=== PATIENT | female | born 1980 | race African-American/Black ===

== ENCOUNTER 2017-02-10 15:53 | Emergency (ER) | payer OTHER, BC ==
--- NOTE | 2017-02-10 15:56 | PDOC ---
Attending Attestation - Resident Resident Name: Agatha Salazar - ED Attending Attestation I have performed the following: I have examined & evaluated the patient, The case was reviewed & discussed with the resident, I agree w/resident's findings & plan, Exceptions are as noted
[2017-02-10] MEDS ORDERED: NAPROXEN 500 MG TABLET (FP) PO ONE (16:08)
[2017-02-10] MEDS ORDERED: NAPROXEN 500 MG TABLET (FP) ONE (16:10)
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
[2017-02-10 16:29] VITALS: BP 147/98; PULSE 101; TEMP 99.1; BMI 34.5
== END 2017-02-10 16:33 | disposition home or self-care (01) ==
LOC: FER 15:53
DX: S39.012A Strain of muscle, fascia and tendon of lower back, initial encounter (principal); V43.52XA Car driver injured in collision with other type car in traffic accident, initial encounter; Y93.89 Activity, other specified; Y92.9 Unspecified place or not applicable; Z79.84 Long term (current) use of oral hypoglycemic drugs; E11.9 Type 2 diabetes mellitus without complications; I10 Essential (primary) hypertension
CPT/HCPCS: 99281-25

== ENCOUNTER 2017-06-20 00:12 | Emergency (ER) | payer BC, OTHER ==
[2017-06-20] MEDS ORDERED: ACETAMINOPHEN 500 MG TABLET (FP) PO ONE (00:26)
--- NOTE | 2017-06-20 00:26 | PDOC ---
History of Present Illness - General Chief Complaint: Blood Pressure Problem Stated Complaint: BLOOD PRESSURE IS HIGH Time Seen by Provider: 06/20/17 00:23 History Source: Patient Exam Limitations: No Limitations - History of Present Illness Initial Comments: 06/20/17 00:27 This is a 36-year-old female who comes in complaining of hypertension. Patient said she had stopped taking her blood pressure medicine a couple weeks ago and the last several days has had a headache so she took her blood pressure and it was elevated. Patient restarted taking her blood pressure medication 2 days ago and her blood pressure here in the emergency room was 118/87. Patient said that she still has a very mild headache but it is much better. Patient otherwise denies any chest pain shortness patient's nausea, diaphoresis. Or any other complaints. PAST MEDICAL HISTORY: Hypertension PAST SURGICAL HISTORY: no significant history FAMILY HISTORY: no pertinant history SOCIAL HISTORY: Pt lives with family and is employed. MEDICATIONS: reviewed ALLERGIES: As per nursing notes Review of Systems General: No fevers or chills, no weakness, no weight loss HEENT: No change in vision. No sore throat,. No ear pain CardioVascular: No chest pain or shortness of breath Respiratory:No cough, or wheezing. Gastrointestinal: no nausea, vomitting, diarrhea or constipation, No rectal bleeding Genitourinary: No dysuria, hematuria, or frequency Musculoskeletal: No joint or muscle pain or swelling Neurologic: + headache, vertigo, dizziness or loss of consciousness Psychiatric: nor depression Skin: No rashes or easy bruising Endocrine: no increased thirst or abnormal weight change Allergic: no skin or latex allergy All other systems reviewed and normal GENERAL: The patient is awake, alert, and fully oriented, in no acute distress. HEAD: Normal with no signs of trauma. EYES: Pupils equal, round and reactive to light, extraocular movements intact, sclera anicteric, conjunctiva clear. EXTREMITIES: Normal range of motion, no edema. NEUROLOGICAL: Normal speech, normal gait. PSYCH: Normal mood, normal affect. SKIN: Warm, Dry, normal turgor, no rashes or lesions noted. 06/20/17 00:29 Patient assessment and plan: Patient was reassured that her blood pressure was fine here in the emergency room she was given Tylenol for the headache and to make sure she takes her medication on a daily basis. It will cause her blood pressure to elevate. Past History - Past Medical History Allergies/Adverse Reactions: Allergies Allergy/AdvReac Type Severity Reaction Status Date / Time minocycline Allergy Verified 06/20/17 00:14 Home Medications: Ambulatory Orders Amlodipine Besylate [Norvasc -] 10 mg PO DAILY 06/20/17 Benazepril/Hydrochlorothiazide [Benazepril-Hctz 10-12.5 mg Tab] 1 each PO DAILY 06/20/17 Metformin HCl 500 mg PO BID 06/20/17 Diabetes: Yes (PRE DIABETIC) Disorders: Yes (PCOS) HTN: Yes - Immunization History Td Vaccination: Yes TDAP Vaccination: Yes Immunization Up to Date: Yes - Suicide/Smoking/Psychosocial Hx Smoking Status: No Smoking History: Never smoked Have you smoked in the past 12 months: No Number of Cigarettes Smoked Daily: 0 Information on smoking cessation initiated: No Hx Alcohol Use: No Drug/Substance Use Hx: No Substance Use Type: None *Physical Exam - Vital Signs Last Vital Signs Temp Pulse Resp BP Pulse Ox 98.9 F 94 H 16 129/87 98 06/20/17 00:19 06/20/17 00:19 06/20/17 00:19 06/20/17 00:19 06/20/17 00:19 *DC/Admit/Observation/Transfer Diagnosis at time of Disposition: Essential hypertension - Discharge Dispostion Disposition: HOME Condition at time of disposition: Stable Admit: No - Patient Instructions Printed Discharge Instructions: How to Monitor Your Blood Pressure at Home Additional Instructions: Make sure you take your blood pressure on a daily basis. Have your blood pressure machine checked to make sure it is accurate. Return to the emergency department immediately with ANY new, persistent or worsening symptoms. Continue any medications as previously prescribed by your physician. You should follow up with your primary doctor as soon as possible regarding today's emergency department visit. . Please make sure your doctor reviews the results of your emergency evaluation. Thank you for coming to the Emergency Department today for your care. It was a pleasure to see you today. Please note that your evaluation is INCOMPLETE until you follow-up with your doctor.
[2017-06-20] MEDS ORDERED: ACETAMINOPHEN 500 MG TABLET (FP) ONE (00:27)
[2017-06-20 00:29] VITALS: BP 129/87; PULSE 94; TEMP 98.9; BMI 34.8
== END 2017-06-20 00:33 | disposition home or self-care (01) ==
LOC: FER 00:12
DX: I10 Essential (primary) hypertension (principal); R73.03 Prediabetes
CPT/HCPCS: 99281-25

== ENCOUNTER 2018-04-29 15:35 | Emergency (ER) | payer BC ==
--- NOTE | 2018-04-29 15:39 | PDOC ---
Attending Attestation - Resident Resident Name: Javier Romero - ED Attending Attestation I have performed the following: I have examined & evaluated the patient, The case was reviewed & discussed with the resident, I agree w/resident's findings & plan, Exceptions are as noted
[2018-04-29 15:48] VITALS: BP 135/93; PULSE 92; TEMP 98.4; BMI 36.1
--- NOTE | 2018-04-29 15:50 | PDOC ---
History of Present Illness - General Chief Complaint: Blood Pressure Problem Stated Complaint: ELEVATED BLOOD PRESSURE Time Seen by Provider: 04/29/18 15:48 - History of Present Illness Initial Comments: 04/29/18 16:52 Chief complaint: Headache and stiffness of the neck and shoulders History of present illness: Patient describes mild coronal headache that is intermittent for approximately one week. This is accompanied by pain and stiffness in the shoulders, upper back, and occiput. 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 She has taken Tylenol with partial relief. Symptoms have not interfered with her work or with taking care of her 2-year- old infant Review of systems: No fever/chills, URI symptoms, sore throat, cough, chest pain , abdominal pain, nausea, vomiting, diarrhea, urinary tract symptoms, vaginal bleeding or discharge. The patient has not menstruated since getting her IUD approximately one year ago. She admits shortness of breath which she describes as a feeling that she cannot take a deep inspiration and cannot get enough oxygen. This occurs mostly in the morning when she wakes up and in the evening when she is going to bed. There is no exercise intolerance Past medical history: High blood pressure on amlodipine, metformin for prediabetes/PCOS. She ran out of her amlodipine for several days last week, but has restarted it. She has gained 20 pounds in the last few months, stating that she has been over eating and not exercising Social history: Works as an aide for developmentally disabled adults, is a single mother with a 2-year-old son. Denies tobacco or nonprescription drugs. Occasional social alcohol, none recently Family history: Reviewed and noncontributory, specifically diabetes, coronary artery disease, CVA/stroke, PVD, emboli Physical exam: Alert and oriented moderately obese but in no acute distress cheerful and cooperative Afebrile. Blood pressure 135/93, remainder vital signs normal Fundi were well visualized and are benign, specifically, there are no hypertensive changes, no AV nicking, no hemorrhages or exudates, no edema of the optic disc. ENT clear Neck supple without bruit mass or nodes Lungs clear with full breath sounds throughout bilaterally. No wheezes rales or rhonchi CV regular without murmur or gallop Abdomen benign Neurological C2 to 12 intact. Strength full and symmetric. No focal sensory or motor deficits. Gait stable and unimpaired cerebellum intact Musculoskeletal: Generalized muscle tension and mild sensitivity over the trapezius muscles, paravertebral muscles of the upper back, and posterior neck musculature. Impression: The patient's symptoms are likely due to stress/anxiety, coupled with weight gain, sedentary activity, and absence of relaxation activities. There is no suggestion of neurologic or cardiac disease Plan: Heat and massage recommended for the upper back neck and shoulders. Stress reduction techniques were reviewed including exercise, deep breathing, yoga, and/or meditation. Weight loss is encouraged. Close follow-up with monitoring with family physician. Patient fully ambulatory, cheerful, and receptive to counseling techniques. To follow-up as directed. Past History - Past Medical History Allergies/Adverse Reactions: Allergies Allergy/AdvReac Type Severity Reaction Status Date / Time minocycline Allergy Mild Hives Verified 04/29/18 15:37 Home Medications: Ambulatory Orders Amlodipine Besylate [Norvasc -] 10 mg PO BID 06/20/17 metFORMIN HCL [Metformin HCl] 500 mg PO BID 06/20/17 COPD: No Diabetes: Yes (PRE DIABETIC) Disorders: Yes (PCOS) HTN: Yes - Immunization History Td Vaccination: Yes TDAP Vaccination: Yes Immunization Up to Date: Yes - Suicide/Smoking/Psychosocial Hx Smoking Status: No Smoking History: Never smoked Have you smoked in the past 12 months: No Number of Cigarettes Smoked Daily: 0 Information on smoking cessation initiated: No Hx Alcohol Use: No Drug/Substance Use Hx: No Substance Use Type: None *Physical Exam - Vital Signs Last Vital Signs Temp Pulse Resp BP Pulse Ox 98.4 F 92 H 16 135/93 100 04/29/18 15:36 04/29/18 15:36 04/29/18 15:36 04/29/18 15:36 04/29/18 15:36 *DC/Admit/Observation/Transfer Diagnosis at time of Disposition: Headache Qualifiers: Headache type: tension-type Headache chronicity pattern: episodic headache Intractability: not intractable Qualified Code(s): G44.219 - Episodic tension- type headache, not intractable - Discharge Dispostion Disposition: HOME Condition at time of disposition: Stable Decision to Admit order: No - Referrals - Patient Instructions Printed Discharge Instructions: How stressed are you?, Tips for Reducing Stress in Your Life Additional Instructions: Relaxation techniques such as deep breathing several times a day, meditation, or yoga may be helpful Regular exercise and weight loss Ibuprofen 600-800 mg may be used occasionally if needed for headache Continue your regular medications and see your primary physician regularly for monitoring. - Post Discharge Activity
[2018-04-29] MEDS ORDERED: IBUPROFEN 600 MG TABLET (FP) PO ONE ×2 (16:33→16:48)
== END 2018-04-29 16:53 | disposition home or self-care (01) ==
LOC: FER 15:35
DX: G44.219 Episodic tension-type headache, not intractable (principal); I10 Essential (primary) hypertension; R73.03 Prediabetes
CPT/HCPCS: 99281-25

== ENCOUNTER 2018-06-02 07:48 | Emergency (ER) | payer BC ==
--- NOTE | 2018-06-02 07:50 | PDOC ---
History of Present Illness - General Chief Complaint: Blood Sugar Problem Stated Complaint: HYPERGLYCEMIA Time Seen by Provider: 06/02/18 07:50 History Source: Patient Exam Limitations: No Limitations - History of Present Illness Initial Comments: 37 yo F history DM2 and HTN presents with high blood sugar. She states she has been urinating more frequently than usual and has felt nauseated, checked with her glucometer and had a reading of "high". She states she was previously on metformin, however she stopped taking it when she noticed that her blood sugar was the same when she missed a dose. She also states she has had recent URI symptoms with persistent cough for past 1 month. No fever, chills, malaise. Past History - Past Medical History Allergies/Adverse Reactions: Allergies Allergy/AdvReac Type Severity Reaction Status Date / Time minocycline Allergy Mild Hives Verified 06/02/18 07:49 Home Medications: Ambulatory Orders Amlodipine Besylate [Norvasc -] 10 mg PO BID 06/20/17 metFORMIN HCL [Metformin HCl] 500 mg PO BID 06/20/17 metFORMIN HCL [Metformin HCl] 500 mg PO BID #60 tablet 06/02/18 COPD: No Diabetes: Yes (PRE DIABETIC) Disorders: Yes (PCOS) HTN: Yes - Immunization History Td Vaccination: Yes TDAP Vaccination: Yes Immunization Up to Date: Yes - Suicide/Smoking/Psychosocial Hx Smoking Status: No Smoking History: Never smoked Have you smoked in the past 12 months: No Number of Cigarettes Smoked Daily: 0 Hx Alcohol Use: No Drug/Substance Use Hx: No Substance Use Type: None Review of Systems - Review of Systems Able to Perform ROS?: Yes Comments:: GENERAL/CONSTITUTIONAL: No fever or chills. No weakness. HEAD, EYES, EARS, NOSE AND THROAT: No change in vision. No ear pain or discharge. No sore throat. CARDIOVASCULAR: No chest pain or shortness of breath. RESPIRATORY: +Cough. No wheezing, or hemoptysis. GASTROINTESTINAL: +Nausea No vomiting, diarrhea or constipation. GENITOURINARY: +Dysuria, frequency. MUSCULOSKELETAL: No joint or muscle swelling or pain. No neck or back pain. SKIN: No rash NEUROLOGIC: No headache, vertigo, loss of consciousness, or change in strength/ sensation. ENDOCRINE: No increased thirst. No abnormal weight change. HEMATOLOGIC/LYMPHATIC: No anemia, easy bleeding, or history of blood clots. ALLERGIC/IMMUNOLOGIC: No hives or skin allergy. *Physical Exam - Physical Exam Comments: GENERAL: Awake, alert, and fully oriented, in no acute distress HEAD: No signs of trauma EYES: PERRLA, EOMI, sclera anicteric, conjunctiva clear ENT: Auricles normal inspection, hearing grossly normal, nares patent, oropharynx clear without exudates. Moist mucosa NECK: Normal ROM, supple, no lymphadenopathy, JVD, or masses LUNGS: Breath sounds equal, clear to auscultation bilaterally. No wheezes, and no crackles HEART: Regular rate and rhythm, normal S1 and S2, no murmurs, rubs or gallops ABDOMEN: Soft, nontender, normoactive bowel sounds. No guarding, no rebound. No masses EXTREMITIES: Normal range of motion, no edema. No clubbing or cyanosis. No cords, erythema, or tenderness NEUROLOGICAL: Cranial nerves II through XII grossly intact. Normal speech, normal gait SKIN: Warm, Dry, normal turgor, no rashes or lesions noted. Medical Decision Making - Medical Decision Making 06/02/18 08:23 BGM in ED 216. Bloodwork not necessary at this time. Will send UA/UCG/UCx. Will send new rx for metformin. *DC/Admit/Observation/Transfer Diagnosis at time of Disposition: Hyperglycemia - Discharge Dispostion Condition at time of disposition: Stable Decision to Admit order: No - Referrals - Patient Instructions - Post Discharge Activity
[2018-06-02] MEDS ORDERED: SODIUM CHLORIDE 1,000 ML IV STA (07:51)
[2018-06-02 08:11] VITALS: BP 150/98; PULSE 97; TEMP 99; BMI 35.9
[2018-06-02 08:42] LABS: URINE APPEARANCE Clear; URINE BILIRUBIN Negative (NEGATIVE); URINE COLOR Yellow; URINE GLUCOSE (UA) Negative (NEGATIVE); URINE KETONE Negative (NEGATIVE); URINE LEUK ESTERASE Negative (NEGATIVE); URINE NITRITE Negative (NEGATIVE); URINE PROTEIN 1+ (NEGATIVE); URINE UROBILINOGEN 0.2 (0.2-1.0)
[2018-06-02 08:49] LABS: HCG,QUALITATIVE URINE Negative
[2018-06-02 09:34] LABS: EPI CELLS FEW /HPF; URINE WBC 0-2 (0-5)
== END 2018-06-02 09:01 | disposition home or self-care (01) ==
LOC: FER 07:48
DX: E11.65 Type 2 diabetes mellitus with hyperglycemia (principal); I10 Essential (primary) hypertension; E28.2 Polycystic ovarian syndrome
CPT/HCPCS: 81003; 81015; 82962; 84703; 87086; 99282-25

== ENCOUNTER 2018-06-13 19:13 | Emergency (ER) | payer BC ==
[2018-06-13 19:20] VITALS: BP 161/100; PULSE 118; TEMP 100.3; BMI 36.1
[2018-06-13] MEDS ORDERED: ONDANSETRON 4 MG/2 ML VIAL IVPB ONE (19:39)
[2018-06-13] MEDS ORDERED: SODIUM CHLORIDE 1,000 ML IV ONE (19:39)
--- NOTE | 2018-06-13 19:40 | PDOC ---
History of Present Illness - History of Present Illness Initial Comments: 06/13/18 20:00 The patient is a 37 year old female, with a significant past medical history of DM, HTN, and bronchitis (2017), who presents to the emergency department with, 2 days of congestion, productive cough with clear sputum, and chills. The patient also endorses nausea and vomiting after coughing. She is positive for sick contacts at work. She denies recent fevers, headache or dizziness. She denies recent diarrhea or constipation. She denies recent dysuria, frequency, urgency or hematuria. She denies recent chest pain or shortness of breath. PAST MEDICAL HISTORY: DM, HTN, and bronchitis (2017) PAST SURGICAL HISTORY: no significant history FAMILY HISTORY: no pertinent history SOCIAL HISTORY: Pt lives with family and is employed. MEDICATIONS: reviewed ALLERGIES: As per nursing notes ROS: General: Chills. No fevers, no weakness, no weight loss HEENT: Congestion. No change in vision. No sore throat,. No ear pain CardioVascular: No chest pain or shortness of breath Respiratory: Cough. Gastrointestinal: Nausea. Vomiting. no diarrhea or constipation, No rectal bleeding Genitourinary: No dysuria, hematuria, or frequency Musculoskeletal: No joint or muscle pain or swelling Neurologic: No headache, vertigo, dizziness or loss of consciousness Psychiatric: nor depression Skin: No rashes or easy bruising Endocrine: no increased thirst or abnormal weight change Allergic: no skin or latex allergy All other systems reviewed and normal Physical Exam: General: Well-nourished well-developed individual, no acute distress HEENT: Nasal congestion. Throat: Normal, tonsils normal, no erythema or exudate Neck: Supple, no meningeal signs, no lymphadenopathy Eyes::Pupils equal reactive and round, extraocular motion intact Chest: Nontender to palpation Cardiac: S1-S2 normal, regular rate and rhythm, no murmurs rubs or gallops Respiratory: Mild expiratory wheezing. Abdomen: Soft, nondistended, normal bowel sounds, nontender to palpation diffusely Extremities: Warm, dry, no cyanosis, clubbing, or edema Skin: No rashes Neuro: Alert and oriented x3, nonfocal exam, grossly intact, normal gait Psych: Normal mood and affect <Linda Bell - Last Filed: 06/13/18 19:59> - General History Source: Patient Exam Limitations: No Limitations - History of Present Illness Initial Comments: 06/13/18 21:10 A portion of this note was documented by scribe services under my direction. I have reviewed the details of the note, within reason, and agree with the documentation. The case summary and management plan written by me. Assessment and plan: This is a 37-year-old female who comes in complaining of cough congestion fevers and patient was given a chest x-ray that did show probable bronchitis but no evidence of pneumonia at this time. Patient was given azithromycin and prescription for Tessalon Perles was sent to patient's pharmacy in addition to that a prescription for Ventolin inhaler and additional azithromycin was sent. Patient discharged home will follow up with her primary care doctor <Rosy Joe I - Last Filed: 06/13/18 21:13> - General Chief Complaint: Cold Symptoms Stated Complaint: COUGH,CONGESTION Time Seen by Provider: 06/13/18 19:27 Past History <Linda Bell - Last Filed: 06/13/18 19:59> - Past Medical History COPD: No Diabetes: Yes (PRE DIABETIC) Disorders: Yes (PCOS) HTN: Yes - Immunization History Td Vaccination: Yes TDAP Vaccination: Yes Immunization Up to Date: Yes - Suicide/Smoking/Psychosocial Hx Smoking Status: No Smoking History: Never smoked Have you smoked in the past 12 months: No Number of Cigarettes Smoked Daily: 0 Hx Alcohol Use: No Drug/Substance Use Hx: No Substance Use Type: None <Rosy Joe I - Last Filed: 06/13/18 21:13> - Past Medical History Allergies/Adverse Reactions: Allergies Allergy/AdvReac Type Severity Reaction Status Date / Time minocycline Allergy Mild Hives Verified 06/02/18 07:49 Home Medications: Ambulatory Orders Amlodipine Besylate [Norvasc -] 10 mg PO BID 06/20/17 metFORMIN HCL [Metformin HCl] 500 mg PO BID 06/20/17 Albuterol Sulfate Inhaler - [Ventolin HFA Inhaler -] 1 - 2 inh PO Q4H PRN #1 inhaler 06/13/18 Azithromycin 250 mg PO HS #4 tablet 06/13/18 Benzonatate [Tessalon Pearls -] 200 mg PO TID #30 cap 06/13/18 *Physical Exam - Vital Signs Last Vital Signs Temp Pulse Resp BP Pulse Ox 100.3 F H 118 H 18 161/100 97 06/13/18 19:15 06/13/18 19:15 06/13/18 19:15 06/13/18 19:15 06/13/18 19:15 <Linda Bell - Last Filed: 06/13/18 19:59> - Vital Signs Last Vital Signs Temp Pulse Resp BP Pulse Ox 100.3 F H 118 H 18 161/100 97 06/13/18 19:15 06/13/18 19:15 06/13/18 19:15 06/13/18 19:15 06/13/18 19:15 <Rosy Joe I - Last Filed: 06/13/18 21:13> ED Treatment Course - LABORATORY CBC & Chemistry Diagram: 06/13/18 19:55 06/13/18 19:55 <Rosy Joe I - Last Filed: 06/13/18 21:13> *DC/Admit/Observation/Transfer - Attestations Scribe Attestion: 06/13/18 20:01 Documentation prepared by Linda Bell, acting as biomedical engineering technician for Rosy Joe MD. <Linda Bell - Last Filed: 06/13/18 19:59> - Discharge Dispostion Decision to Admit order: No <Rosy Joe I - Last Filed: 06/13/18 21:13> Diagnosis at time of Disposition: Asthmatic bronchitis Qualifiers: Asthma severity: mild Asthma persistence: intermittent Asthma complication type : uncomplicated Qualified Code(s): J45.20 - Mild intermittent asthma, uncomplicated - Discharge Dispostion Disposition: HOME Condition at time of disposition: Stable - Prescriptions Prescriptions: Albuterol Sulfate Inhaler - [Ventolin HFA Inhaler -] 1 - 2 inh PO Q4H PRN #1 inhaler PRN Reason: Cough Azithromycin 250 mg PO HS #4 tablet Benzonatate [Tessalon Pearls -] 200 mg PO TID #30 cap - Patient Instructions Additional Instructions: For the bronchitis take azithromycin 1 tablet a day for the next 4 days, urinary dose will be tomorrow evening. Take Tessalon Perles for the cough 13 times a day do not chew but swallow as it will numb your throat a few chew it. Use your inhaler 2 puffs as often as every 4-6 hours as needed for shortness of breath, cough and wheezing. Return to the emergency department immediately with ANY new, persistent or worsening symptoms. Continue any medications as previously prescribed by your physician. You should follow up with your primary doctor as soon as possible regarding today's emergency department visit. . Please make sure your doctor reviews the results of your emergency evaluation. Thank you for coming to the Emergency Department today for your care. It was a pleasure to see you today. Please note that your evaluation is INCOMPLETE until you follow-up with your doctor.
[2018-06-13] MEDS ORDERED: ONDANSETRON 4 MG/2 ML VIAL ONE (19:58)
[2018-06-13 20:08] LABS: HCG,QUALITATIVE URINE Negative
[2018-06-13 20:14] LABS: URINE APPEARANCE Clear; URINE BILIRUBIN Negative (NEGATIVE); URINE COLOR Yellow; URINE GLUCOSE (UA) Negative (NEGATIVE); URINE KETONE Trace (NEGATIVE); URINE LEUK ESTERASE Negative (NEGATIVE); URINE NITRITE Negative (NEGATIVE); URINE PROTEIN 2+ (NEGATIVE); URINE UROBILINOGEN 0.2 (0.2-1.0)
[2018-06-13 20:24] LABS: BASO % 1.3 % (0-2.0); EOS % 2.1 % (0-4.5); HEMATOCRIT 40.1 % (32.4-45.2); HEMOGLOBIN 12.9 GM/dl (10.7-15.3); MCH 25.9 pg (25.7-33.7); MCHC 32.2 g/dl (32.0-36.0); MEAN CELL VOLUME 80.2 fl (80-96); MEAN PLT VOLUME 7.8 fl (7.5-11.1); MONO % 8.3 % (3.8-10.2); NEUT % 69.3 % (42.8-82.8); PLATELET COUNT 389 K/MM3 (134-434); RBC 4.99 M/mm3 (3.60-5.2); RDW 12.2 % (11.6-15.6); WHITE BLOOD COUNT 7.2 K/mm3 (4.0-10.8)
[2018-06-13 20:25] LABS: ALBUMIN 4.3 g/dl (3.5-5.0); ALK PHOS 128 U/L (32-92); ANION GAP 10 MMOL/L (8-16); BILIRUBIN,TOTAL 0.4 mg/dl (0.2-1.0); BLOOD UREA NITROGEN 13 mg/dl (7-18); CALCIUM 9.4 mg/dl (8.4-10.2); CHLORIDE 99 mmol/L (98-107); CO2 27 mmol/L (22-28); CREATININE 0.7 mg/dl (0.6-1.3); GLUCOSE,RANDOM 153 mg/dl (74-106); POTASSIUM 3.6 mmol/L (3.5-5.1); SGOT/AST 26 U/L (10-42); SGPT/ALT 25 U/L (10-40); SODIUM 136 mmol/L (136-145); TOT PROT 7.9 g/dl (6.4-8.3)
[2018-06-13 20:27] LABS: URINE BACTERIA 1+ /hpf (NEGATIVE); URINE WBC 0-2 (0-5)
[2018-06-13] MEDS ORDERED: ALBUTEROL SO4 2.5/IPRATROPIUM 0.5 INH SOL 3 ML VIAL.NEB. NEB ONE ×2 (20:30→20:32)
[2018-06-13] MEDS ORDERED: AZITHROMYCIN 250 MG TABLET PO ONE (21:05)
[2018-06-13] MEDS ORDERED: methylPREDNISolone NA SUCC 125 MG/2 ML VIAL IVPUSH ONE (21:06)
[2018-06-13] MEDS ORDERED: AZITHROMYCIN 250 MG TABLET ONE (21:12)
[2018-06-13] MEDS ORDERED: methylPREDNISolone NA SUCC 125 MG/2 ML VIAL ONE (21:13)
[2018-06-13 22:27] LABS: LIPASE 86 U/L (73-393)
== END 2018-06-13 21:40 | disposition home or self-care (01) ==
LOC: FER 19:13
PROC: 3E0333Z Introduction of Anti-inflammatory into Peripheral Vein, Percutaneous Approach (ICD-10-PCS; principal; 2018-06-13)
PROC: 3E033GC Introduction of Other Therapeutic Substance into Peripheral Vein, Percutaneous Approach (ICD-10-PCS; 2018-06-13)
PROC: 3E0337Z Introduction of Electrolytic and Water Balance Substance into Peripheral Vein, Percutaneous Approach (ICD-10-PCS; 2018-06-13)
PROC: 3E0F7GC Introduction of Other Therapeutic Substance into Respiratory Tract, Via Natural or Artificial Opening (ICD-10-PCS; 2018-06-13)
DX: J45.20 Mild intermittent asthma, uncomplicated (principal); I10 Essential (primary) hypertension; E11.9 Type 2 diabetes mellitus without complications; Z79.84 Long term (current) use of oral hypoglycemic drugs
CPT/HCPCS: 36415; 71046-TC-FY; 80053; 81003; 81015; 83690; 84703; 85025; 99282-25; J7030; J7620

== ENCOUNTER 2019-04-25 00:04 | Emergency (ER) | payer BC ==
[2019-04-25 00:14] VITALS: BP 153/99; PULSE 112; TEMP 98.5; BMI 36.4
[2019-04-25] MEDS ORDERED: KETOROLAC TROMETHAMINE 60 MG/2 ML VIAL ONE (00:19)
[2019-04-25] MEDS ORDERED: KETOROLAC TROMETHAMINE 60 MG/2 ML VIAL IM ONE (00:20)
--- NOTE | 2019-04-25 00:20 | PDOC ---
History of Present Illness - General Chief Complaint: Headache Stated Complaint: HEADACHE/MALAISE Time Seen by Provider: 04/25/19 00:14 History Source: Patient Exam Limitations: No Limitations - History of Present Illness Initial Comments: 04/25/19 00:20 This is a 38-year-old female who comes in complaining of body aches headache generalized fatigue and not feeling well times several hours. Patient said that she was wearing a tampon for a couple of hours was reading on the Internet and is concerned she may have toxic shock syndrome. Patient does not have a fever. And her vitals are normal with the exception of a mildly elevated heart rate of 112. Allergies: as per nursing notes Past Medical History: none Social history: Lives with family. No smoking. No alcohol. No illicit drugs. Surgical history: None General: No fevers or chills, no weakness, no weight loss HEENT: No change in vision. No sore throat,. No ear pain CardioVascular: no chest discomfort. No shortness of breath Respiratory:No cough, or wheezing. Gastrointestinal: no nausea, vomiting, diarrhea or constipation, No rectal bleeding Genitourinary: No dysuria, hematuria, or frequency Musculoskeletal: No joint or muscle pain or swelling Neurologic: No headache, vertigo, dizziness or loss of consciousness Psychiatric: nor depression Skin: No rashes or easy bruising Endocrine: no increased thirst or abnormal weight change Allergic: no skin or latex allergy All other systems reviewed and normal Exam: General: Well-nourished well-developed individual, no acute distress HEENT: Throat: Normal, tonsils normal, no erythema or exudate Neck: Supple, no meningeal signs, no lymphadenopathy Eyes::Pupils equal reactive and round, extraocular motion intact Chest: Nontender to palpation Cardiac: S1-S2 normal, regular rate and rhythm, no murmurs rubs or gallops Respiratory: Lungs clear to auscultation bilateral Abdomen: Soft, nondistended, normal bowel sounds, there is no tenderness on palpation diffusely Extremities: Warm, dry, no cyanosis, clubbing, or edema Skin: No rashes Neuro: Alert and oriented x3, CN II - XII intact, nonfocal exam with normal strength, normal sensation, normal reflexes, normal gait, Psych: Normal mood and affect Assessment and plan: This 38-year-old female who has symptoms of a viral illness times several hours. Patient was concerned she may have toxic shock syndrome. I reassured her that that is not a possibility patient felt much better and was given some Toradol and discharged home Past History - Past Medical History Allergies/Adverse Reactions: Allergies Allergy/AdvReac Type Severity Reaction Status Date / Time minocycline Allergy Mild Hives Verified 06/02/18 07:49 Home Medications: Ambulatory Orders metFORMIN HCL [Metformin HCl] 500 mg PO BID 06/20/17 Amlodipine Besylate/Benazepril [Lotrel ] 1 each PO DAILY 04/25/19 COPD: No Diabetes: Yes Disorders: Yes (PCOS) HTN: Yes - Immunization History Td Vaccination: Yes TDAP Vaccination: Yes Immunization Up to Date: Yes - Suicide/Smoking/Psychosocial Hx Smoking Status: No Smoking History: Never smoked Have you smoked in the past 12 months: No Number of Cigarettes Smoked Daily: 0 Hx Alcohol Use: No Drug/Substance Use Hx: No Substance Use Type: None *Physical Exam - Vital Signs Last Vital Signs Temp Pulse Resp BP Pulse Ox 98.5 F 112 H 16 153/99 98 04/25/19 00:07 04/25/19 00:07 04/25/19 00:07 04/25/19 00:07 04/25/19 00:07 *DC/Admit/Observation/Transfer Diagnosis at time of Disposition: Viral illness - Discharge Dispostion Disposition: HOME Condition at time of disposition: Stable Decision to Admit order: No - Referrals Referrals: Meagan Barbosa MD [Primary Care Provider] - - Patient Instructions Additional Instructions: Take Tylenol or Motrin as needed for headache or fevers. Stay well-hydrated and follow-up with your doctor on Sunday if not improved.. Return to the emergency department immediately with ANY new, persistent or worsening symptoms. Continue any medications as previously prescribed by your physician. You should follow up with your primary doctor as soon as possible regarding today's emergency department visit. . Please make sure your doctor reviews the results of your emergency evaluation. Thank you for coming to the Emergency Department today for your care. It was a pleasure to see you today. Please note that your evaluation is INCOMPLETE until you follow-up with your doctor. - Post Discharge Activity
== END 2019-04-25 00:27 | disposition home or self-care (01) ==
LOC: FER 00:04
PROC: 3E0233Z Introduction of Anti-inflammatory into Muscle, Percutaneous Approach (ICD-10-PCS; principal; 2019-04-25)
DX: B34.9 Viral infection, unspecified (principal); I10 Essential (primary) hypertension; E11.9 Type 2 diabetes mellitus without complications; E28.2 Polycystic ovarian syndrome
CPT/HCPCS: 99281-25

== ENCOUNTER 2020-06-03 06:44 | Emergency (ER) | payer BC ==
[2020-06-03 07:04] VITALS: BP 154/105; PULSE 85; TEMP 98.6; BMI 34.4
--- NOTE | 2020-06-03 07:04 | PDOC ---
History of Present Illness - General Time Seen by Provider: 06/03/20 07:00 History Source: Patient Exam Limitations: No Limitations - History of Present Illness Initial Comments: 06/03/20 07:01 This is a 39-year-old female who comes in complaining of lower abdominal pain. Patient was seen at approximately 5 AM however the computers were down so the chart was not generated until 7 AM when the computers came back up. Patient has a history significant for renal colic and comes in complaining of left flank pain radiating to the left lower quadrant and some associated nausea but no vomiting. Patient also is complaining of some dysuria on urination. Allergies: as per nursing notes Past Medical History: none Social history: Lives with family. No smoking. No alcohol. No illicit drugs. Surgical history: None General: No fevers or chills, no weakness, no weight loss HEENT: No change in vision. No sore throat,. No ear pain CardioVascular: no chest discomfort. No shortness of breath Respiratory:No cough, or wheezing. Gastrointestinal: no nausea, vomiting, diarrhea or constipation, No rectal bleeding Genitourinary: No dysuria, hematuria, or frequency Musculoskeletal: No joint or muscle pain or swelling Neurologic: No headache, vertigo, dizziness or loss of consciousness Psychiatric: nor depression Skin: No rashes or easy bruising Endocrine: no increased thirst or abnormal weight change Allergic: no skin or latex allergy All other systems reviewed and normal Exam: General: Well-nourished well-developed individual, no acute distress HEENT: Throat: Normal, tonsils normal, no erythema or exudate Neck: Supple, no meningeal signs, no lymphadenopathy Eyes::Pupils equal reactive and round, extraocular motion intact Chest: Nontender to palpation Cardiac: S1-S2 normal, regular rate and rhythm, no murmurs rubs or gallops Respiratory: Lungs clear to auscultation bilateral Abdomen: Soft, nondistended, normal bowel sounds, there is some mild tenderness across the suprapubic area. Patient does have a section scar that is thickened however there is no palpable hernia. Backs/ flank: There is some left flank tenderness but no CVA tenderness Extremities: Warm, dry, no cyanosis, clubbing, or edema Skin: No rashes Neuro: Alert and oriented x3, CN II - XII intact, nonfocal exam with normal strength, normal sensation, normal reflexes, normal gait, Psych: Normal mood and affect Assessment and plan: This is a 39-year-old female with left flank pain radiating to the left lower quadrant. Patient most likely has a kidney stone however results are still pending secondary to the computers being down. Care of this patient was transferred to Dr. Davis at 7 AM Case discussed in detail with oncoming Emergency Physician including history, physical exam and ancillary studies. Oncoming Emergency Physician has assumed care for the patient and will complete the evaluation and treatment. Patient is aware of the plan. Pt is clinically unchanged and stable. Past History - Medical History Allergies/Adverse Reactions: Allergies Allergy/AdvReac Type Severity Reaction Status Date / Time minocycline Allergy Mild Hives Verified 06/02/18 07:49 Home Medications: Ambulatory Orders metFORMIN HCL [Metformin HCl] 500 mg PO BID 06/20/17 Amlodipine Besylate/Benazepril [Lotrel ] 1 each PO DAILY 04/25/19 Cephalexin [Keflex] 500 mg PO BID #20 capsule 06/03/20 Ibuprofen 600 mg PO QID #20 tablet 06/03/20 Ondansetron [Zofran *Odt*] 4 mg SL TID PRN #9 od.tablet 06/03/20 Oxycodone HCl 10 mg PO TID PRN #10 tablet MDD 3 06/03/20 COPD: No Diabetes: Yes Disorders: Yes (PCOS) HTN: Yes - Immunization History Td Vaccination: Yes TDAP Vaccination: Yes Immunization Up to Date: Yes - Psycho-Social/Smoking History Smoking Status: No Smoking History: Never smoked Have you smoked in the past 12 months: No Number of Cigarettes Smoked Daily: 0 ED Treatment Course - LABORATORY CBC & Chemistry Diagram: 06/03/20 06:15 06/03/20 06:15 Discharge - Discharge Information Problems reviewed: Yes Clinical Impression/Diagnosis: Ureterolithiasis Condition: Improved Disposition: HOME - Additional Discharge Information Prescriptions: Ibuprofen 600 mg PO QID #20 tablet Cephalexin [Keflex] 500 mg PO BID #20 capsule Oxycodone HCl 10 mg PO TID PRN #10 tablet MDD 3 PRN Reason: Severe Pain Ondansetron [Zofran *Odt*] 4 mg SL TID PRN #9 od.tablet PRN Reason: nausea/vomiting - Follow up/Referral Referrals: Ricky Love MD [Staff Physician] - Pete Wakefield MD., MD [Staff Physician] - Ovidio Pereira MD [Staff Physician] - - Patient Discharge Instructions Patient Printed Discharge Instructions: DI for Kidney Stones Additional Instructions: Discharge for patients: Your CT results were significant for obstructed stones and swelling of collecting system, Drink plenty of water/fluids, avoid caffeine or alcohol Strain all urine for the next 1-2 days and save any stone for analysis Ibuprofen/naproxen/acetaminophen as needed for [id number] pain. Use Motrin (also called Ibuprofen or Advil) 400 mg every 6 hours as needed for pain. If you have any stomach discomfort while taking Motrin, you can use TUMS to help. Oxycodone every 6 hours as needed for severe pain; Please do not drive or operate heavy machinery while on this medication because it can impair your judgement. This is a very addictive medication, do not take it unless you absolutely have to. Take antibiotics twice a day x 10 days (keflex) for mild infection and stone Return to ER if you experience persistent pain/vomiting/fever/dehydration, difficulty urinating or inability to tolerate oral intake. Follow-up with your primary doctor within the next 2-3 days. Urologist follow up this week, referral given as well. (we will give you a list of urologists, but make sure they accept your insurance). Please bring your labs and imaging w ith you to your appointment. - Post Discharge Activity Work/Back to School Note: Back to Work
[2020-06-03 07:10] LABS: BASO % 0.7 % (0-2.0); EOS % 5.1 % (0-4.5); HEMOGLOBIN 12.1 GM/dL (10.7-15.3); LYMPH % 35.4 % (8-40); MCH 25.9 pg (25.7-33.7); MCHC 32.7 g/dl (32.0-36.0); MEAN CELL VOLUME 79.2 fl (80-96); MEAN PLT VOLUME 7.6 fl (7.5-11.1); MONO % 11.3 % (3.8-10.2); NEUT % 47.5 % (42.8-82.8); PLATELET COUNT 375 K/MM3 (134-434); RBC 4.67 M/mm3 (3.60-5.2); RDW 13.5 % (11.6-15.6); WHITE BLOOD COUNT 5.5 K/mm3 (4.0-10.0)
[2020-06-03] MEDS ORDERED: ACETAMINOPHEN 1000 MG/100 ML VIAL (NON FORMULARY) IVPB ONE (07:17)
[2020-06-03] MEDS ORDERED: ACETAMINOPHEN INJECTION 100 ML IVPB ONE (07:17)
--- NOTE | 2020-06-03 07:19 | PDOC ---
*Physical Exam - Vital Signs Last Vital Signs Temp Pulse Resp BP Pulse Ox 98.6 F 85 20 154/105 H 99 06/03/20 06:54 06/03/20 06:54 06/03/20 06:54 06/03/20 06:54 06/03/20 06:54 ED Treatment Course - LABORATORY CBC & Chemistry Diagram: 06/03/20 06:15 06/03/20 06:15 Medical Decision Making - Medical Decision Making 06/03/20 07:18 pt signed out from Dr Read at 7AM, downtime on [employer] in the morning in summary 39-year-old female who comes in complaining of lower abdominal pain. Patient was seen at approximately 5 AM however the computers were down so the chart was not generated until 7 AM when the computers came back up. Patient has a history significant for renal colic and comes in complaining of left flank pain radiating to the left lower quadrant and some associated nausea but no vomiting. Patient also is complaining of some dysuria on urination. labs and lytes, UA, CT spiral pending. analgesia with toradol and tylenol, reassess 06/03/20 07:18 06/03/20 08:13 laboratory results wnl, no wbc ct neg preg test UA with blood, some wbcs, will treat with abx. keflex x 10 day course 06/03/20 09:20 Clinically the patient presents with symptomatic ureterolithiasis (kidney stones). IV pain medications, antiemetics, and IV fluids were given. A CT Abdomen/Pelvis was obtained for concern for a possible obstructing kidney stone and to rule out other pathologic conditions. The CT confirmed revealed a stone at left UVJ measuring 4mm. With pain medication the patient improved significantly. The patient is referred to the urologists for follow up and is discharged with oral narcotics for pain control, antiemetics, and given the following return precautions: Fever > 100.5, pain not controlled with narcotics, worsening pain, dehydration, vomiting or any other concerns and to strain the urine. NSAIDS/tylenol for mild to moderate pain, rx oxycodone PRN for more severe pain. zofran for nausea, adequate hydration and oral fluids and air conditioning in h ot weather. literature/evidence low for flomax benefit, so defer. urine strainer to catch urine. 06/03/20 09:31 06/03/20 09:39 06/03/20 09:45 Discharge - Discharge Information Problems reviewed: Yes Clinical Impression/Diagnosis: Ureterolithiasis Condition: Improved Disposition: HOME - Admission No - Additional Discharge Information Prescriptions: Ibuprofen 600 mg PO QID #20 tablet Cephalexin [Keflex] 500 mg PO BID #20 capsule Oxycodone HCl 10 mg PO TID PRN #10 tablet MDD 3 PRN Reason: Severe Pain Ondansetron [Zofran *Odt*] 4 mg SL TID PRN #9 od.tablet PRN Reason: nausea/vomiting - Follow up/Referral Referrals: Ovidio Pereira MD [Staff Physician] - Ricky Love MD [Staff Physician] - Pete Wakefield MD., MD [Staff Physician] - - Patient Discharge Instructions Patient Printed Discharge Instructions: DI for Kidney Stones Additional Instructions: Discharge for patients: Your CT results were significant for obstructed stones and swelling of collecting system, Drink plenty of water/fluids, avoid caffeine or alcohol Strain all urine for the next 1-2 days and save any stone for analysis Ibuprofen/naproxen/acetaminophen as needed for vptl-[id number] pain. Use Motrin (also called Ibuprofen or Advil) 400 mg every 6 hours as needed for pain. If you have any stomach discomfort while taking Motrin, you can use TUMS to help. Oxycodone every 6 hours as needed for severe pain; Please do not drive or operate heavy machinery while on this medication because it can impair your judgement. This is a very addictive medication, do not take it unless you abs olutely have to. Take antibiotics twice a day x 10 days (keflex) for mild infection and stone Return to ER if you experience persistent pain/vomiting/fever/dehydration, difficulty urinating or inability to tolerate oral intake. Follow-up with your primary doctor within the next 2-3 days. Urologist follow up this week, referral given as well. (we will give you a list of urologists, but make sure they accept your insurance). Please bring your labs and imaging with you to your appointment. - Post Discharge Activity Work/Back to School Note: Back to Work
[2020-06-03 07:38] LABS: ALBUMIN 3.9 g/dl (3.4-5.0); BILIRUBIN,TOTAL 0.2 mg/dL (0.2-1); BLOOD UREA NITROGEN 12.1 mg/dL (7-18); CALCIUM 8.7 mg/dL (8.5-10.1); CREATININE 0.6 mg/dL (0.55-1.3); POTASSIUM 3.9 mmol/L (3.5-5.1); TOT PROT 7.7 g/dl (6.4-8.2)
[2020-06-03 07:50] LABS: HCG,QUALITATIVE URINE Negative
[2020-06-03 08:50] LABS: EPI CELLS 22 /uL (0-25.1); HYALINE CASTS 2 /uL (0-3.1); PH,URINE 6.5 (5.0-8.0); URINE APPEARANCE CLEAR; URINE BACTERIA 562 /uL (0-1359); URINE BILIRUBIN NEGATIVE (NEGATIVE); URINE COLOR YELLOW; URINE GLUCOSE (UA) NEGATIVE (NEGATIVE); URINE KETONE NEGATIVE (NEGATIVE); URINE LEUK ESTERASE TRACE (NEGATIVE); URINE NITRITE NEGATIVE (NEGATIVE); URINE PROTEIN 2+ (NEGATIVE); URINE RBC 6663 /uL (0-23.9); URINE UROBILINOGEN 0.2 mg/dL (0.2-1.0); URINE WBC 22 /uL (0-25.8)
== END 2020-06-03 09:34 | disposition home or self-care (01) ==
LOC: FER 06:44
PROC: 3E0333Z Introduction of Anti-inflammatory into Peripheral Vein, Percutaneous Approach (ICD-10-PCS; principal; 2020-06-03)
DX: N20.1 Calculus of ureter (principal)
CPT/HCPCS: 36415; 74176-TC; 80053; 81003; 84703; 85025; 99284-25; J0131

== ENCOUNTER 2020-06-04 21:43 | Emergency (ER) | payer BC ==
--- NOTE | 2020-06-04 21:53 | PDOC ---
History of Present Illness - General Chief Complaint: Pain Stated Complaint: BRUISE LAC Time Seen by Provider: 06/04/20 21:47 History Source: Patient Exam Limitations: No Limitations - History of Present Illness Initial Comments: 06/04/20 21:51 This is a 39-year-old female who had an IV placed yesterday and was here for treatment of a kidney stone. However patient also had an IV attempt in the opposite arm that was unsuccessful. Patient now comes back today complaining of a bruise in the arm where the IV attempt was unsuccessful. Patient denies any other complaints Allergies: as per nursing notes Past Medical History: none Social history: Lives with family. No smoking. No alcohol. No illicit drugs. Surgical history: None General: No fevers or chills, no weakness, no weight loss HEENT: No change in vision. No sore throat,. No ear pain CardioVascular: no chest discomfort. No shortness of breath Respiratory:No cough, or wheezing. Gastrointestinal: no nausea, vomiting, diarrhea or constipation, No rectal bleeding Genitourinary: No dysuria, hematuria, or frequency Musculoskeletal: No joint or muscle pain or swelling Neurologic: No headache, vertigo, dizziness or loss of consciousness Psychiatric: nor depression Skin: Left antecubital bruise Endocrine: no increased thirst or abnormal weight change Allergic: no skin or latex allergy All other systems reviewed and normal GENERAL: The patient is awake, alert, and fully oriented, in no acute distress. HEENT:Head is normal with no signs of trauma. Eyes: Pupils equal, round and reactive to light, Ears, and Throat are normal. Neck is supple. No Lymphadenopathy. EXTREMITIES:atraumatic, Normal range of motion, no edema. There is a contusion in the left antecubital where the IV attempt was. There is no increased warmth, erythema or any other associated symptoms. NEUROLOGICAL: Normal speech, normal gait. PSYCH: Normal mood, normal affect. SKIN: Warm, Dry, normal turgor, no rashes or lesions noted. Assessment and plan: This is a 39-year-old female with a bruise as result of an IV that was unsuccessful. Patient was reassured and discharged home Past History - Medical History Allergies/Adverse Reactions: Allergies Allergy/AdvReac Type Severity Reaction Status Date / Time minocycline Allergy Mild Hives Verified 06/02/18 07:49 Home Medications: Ambulatory Orders metFORMIN HCL [Metformin HCl] 500 mg PO BID 06/20/17 Amlodipine Besylate/Benazepril [Lotrel ] 1 each PO DAILY 04/25/19 Cephalexin [Keflex] 500 mg PO BID #20 capsule 06/03/20 Ibuprofen 600 mg PO QID #20 tablet 06/03/20 Ondansetron [Zofran *Odt*] 4 mg SL TID PRN #9 od.tablet 06/03/20 Oxycodone HCl 10 mg PO TID PRN #10 tablet MDD 3 06/03/20 COPD: No Diabetes: Yes Disorders: Yes (PCOS) HTN: Yes - Immunization History Td Vaccination: Yes TDAP Vaccination: Yes Immunization Up to Date: Yes - Psycho-Social/Smoking History Smoking Status: No Smoking History: Never smoked Have you smoked in the past 12 months: No Number of Cigarettes Smoked Daily: 0 Discharge - Discharge Information Problems reviewed: Yes Clinical Impression/Diagnosis: Traumatic ecchymosis of left upper arm Qualifiers: Encounter type: initial encounter Qualified Code(s): S40.022A - Contusion of left upper arm, initial encounter Condition: Stable Disposition: HOME - Admission No - Follow up/Referral Referrals: Meagan Barbosa MD [Primary Care Provider] - - Patient Discharge Instructions Additional Instructions: Tylenol as needed for pain. Return to the emergency department immediately with ANY new, persistent or worsening symptoms. Continue any medications as previously prescribed by your physician. You should follow up with your primary doctor as soon as possible regarding today's emergency department visit. . Please make sure your doctor reviews the results of your emergency evaluation. Thank you for coming to the Emergency Department today for your care. It was a pleasure to see you today. Please note that your evaluation is INCOMPLETE until you follow-up with your doctor. - Post Discharge Activity
[2020-06-04 21:55] VITALS: BP 148/90; PULSE 88; TEMP 98.6; BMI 34.4
== END 2020-06-04 21:58 | disposition home or self-care (01) ==
LOC: FER 21:43
DX: S40.022A Contusion of left upper arm, initial encounter (principal)
CPT/HCPCS: 99282-25

== ENCOUNTER 2021-02-08 19:44 | Emergency (ER) | payer BC ==
[2021-02-08 20:15] VITALS: BP 143/99; PULSE 83; TEMP 98.2; BMI 20.7
[2021-02-08 20:21] LABS: BASO % 1.8 % (0-2.0); EOS % 3.6 % (0-4.5); HEMATOCRIT 36.5 % (32.4-45.2); HEMOGLOBIN 11.7 GM/dl (10.7-15.3); LYMPH % 35.6 % (8-40); MCH 25.7 pg (25.7-33.7); MCHC 31.9 g/dl (32.0-36.0); MEAN CELL VOLUME 80.4 fl (80-96); MEAN PLT VOLUME 7.4 fl (7.5-11.1); MONO % 6.5 % (3.8-10.2); NEUT % 52.5 % (42.8-82.8); PLATELET COUNT 388 10^3/uL (134-434); RBC 4.55 M/mm3 (3.60-5.2); RDW 12.4 % (11.6-15.6); WHITE BLOOD COUNT 4.8 K/mm3 (4.0-10.8)
[2021-02-08 20:31] LABS: ACTIVATED PTT 31.6 SECONDS (25.2-36.5)
[2021-02-08 20:33] LABS: ALBUMIN 3.7 g/dl (3.4-5.0); BILIRUBIN,TOTAL 0.5 mg/dl (0.2-1); CALCIUM 8.4 mg/dl (8.5-10); CREATININE 0.6 mg/dl (0.55-1.3); TOT PROT 7.2 g/dl (6.4-8.2)
[2021-02-08 20:35] LABS: INR 1.18 (0.82-1.09); PROTHROMBIN TIME (PATIENT) 13.1 SEC (10.2-13.0)
[2021-02-08] MEDS ORDERED: ACETAMINOPHEN 1000 MG/100 ML VIAL (NON FORMULARY) IVPB ONE (21:50)
[2021-02-08] MEDS ORDERED: KETOROLAC TROMETHAMINE 30 MG/1 ML VIAL IVPUSH ONE (21:50)
[2021-02-08] MEDS ORDERED: KETOROLAC TROMETHAMINE 30 MG/1 ML VIAL ONE (21:51)
[2021-02-08] MEDS ORDERED: ACETAMINOPHEN 500 MG TABLET (FP) ONE (21:51)
[2021-02-08] MEDS ORDERED: ACETAMINOPHEN INJECTION 100 ML IVPB ONE (21:52)
== END 2021-02-08 22:35 | disposition home or self-care (01) ==
LOC: FER 19:44
PROC: 3E0333Z Introduction of Anti-inflammatory into Peripheral Vein, Percutaneous Approach (ICD-10-PCS; principal; 2021-02-08)
PROC: 3E0333Z Introduction of Anti-inflammatory into Peripheral Vein, Percutaneous Approach (ICD-10-PCS; 2021-02-08)
DX: N80.9 Endometriosis, unspecified (principal)
CPT/HCPCS: 36415; 76817-TC; 80053; 84702; 85025; 85610; 85730; 86850; 86900; 86901; 99284-25; J0131

== ENCOUNTER 2021-07-26 20:34 | Emergency (ER) | payer BC ==
[2021-07-26 21:03] VITALS: BP 158/85; PULSE 94; TEMP 98.4; BMI 21.2
[2021-07-26 22:15] LABS: BASO % 1.3 % (0-2.0); EOS % 4.9 % (0-4.5); HEMATOCRIT 36.2 % (32.4-45.2); HEMOGLOBIN 11.9 GM/dl (10.7-15.3); LYMPH % 30.3 % (8-40); MCH 26.2 pg (25.7-33.7); MCHC 32.8 g/dl (32.0-36.0); MEAN CELL VOLUME 79.8 fl (80-96); MEAN PLT VOLUME 7.1 fl (7.5-11.1); MONO % 12.1 % (3.8-10.2); NEUT % 51.4 % (42.8-82.8); PLATELET COUNT 379 10^3/uL (134-434); RBC 4.54 M/mm3 (3.60-5.2); RDW 12.7 % (11.6-15.6); WHITE BLOOD COUNT 7.2 K/mm3 (4.0-10.8)
[2021-07-26 22:23] LABS: ALBUMIN 3.9 g/dl (3.4-5.0); BILIRUBIN,TOTAL 0.3 mg/dl (0.2-1); CALCIUM 9.2 mg/dl (8.5-10); CREATININE 0.5 mg/dl (0.55-1.3)
== END 2021-07-26 22:49 | disposition home or self-care (01) ==
LOC: FER 20:34
DX: R07.9 Chest pain, unspecified (principal)
CPT/HCPCS: 36415; 80053; 82550; 82553; 84484; 85025; 93005; 99284-25